=== PATIENT | male | born 1965 | race Caucasian/White ===

== ENCOUNTER 2019-05-04 12:55 | Inpatient (IN) | payer OTHER ==
[~2019-05-04] VITALS: Ht 175.3 cm; Wt 67.0 kg
[2019-05-04 13:41] LABS: CALCIUM 7.8 mg/dL (8.5-10.1); CARBON DIOXIDE 19.2 mmol/L (21-32); CHLORIDE SERUM 102 mmol/L (98-107); CREATININE SERUM 2.2 mg/dL (0.7-1.3); GFR1 33 mL/min; GLUCOSE SERUM 92 mg/dL (74-106); POTASSIUM SERUM 3.6 mmol/L (3.5-5.1); SODIUM SERUM 135 mmol/L (136-145)
[2019-05-04 13:57] LABS: FREE T4 1.44 ng/dL (0.76-1.46); FREE THYROXINE INDEX 2.3 ug/dL (1.4-4.5); T4(THYROXINE) 5.9 ug/dL (4.7-13.3)
[2019-05-04 14:01] LABS: T3 TOTAL 0.44 ng/mL
[2019-05-04 14:19] LABS: ALKALINE PHOSPHATASE 188 U/L (46-116); ALT/SGPT 39 U/L (16-63); AST/SGOT 44 U/L (15-37); BILIRUBIN TOTAL 0.9 mg/dL (0.20-1.00); C REACTIVE PROTEIN 7.8 mg/dL (<=0.9)
[2019-05-04 14:20] LABS: ALBUMIN 2.2 g/dL (3.4-5.0); TOTAL PROTEIN, SERUM 5.9 g/dL (6.4-8.2)
[2019-05-04 14:44] LABS: CK-MB 4.7 ng/mL (0-3.6)
[2019-05-04 14:50] LABS: UA SPECIFIC GRAVITY 1.005 (1.005-1.035); microscopic required? YES
[2019-05-04 14:51] LABS: urine erythrocyte 2+ (NEGATIVE)
[2019-05-04 15:14] LABS: PLATELET COUNT 240 x10^3mcL (130-400); RED CELL DISTRIBUTION WIDTH 12.6 % (11.5-14.5)
[2019-05-04 15:18] LABS: ERYTHROCYTE SED RATE 46 mm/hr (0-20)
[2019-05-04 15:38] LABS: BAND NEUTROPHIL 32 % (0-10); METAMYELOCTE 21 % (0-2); MYELOCYTE 1 % (0-2); SEGMENTED NEUTROPHILS 45 % (37-75)
[2019-05-04 15:40] LABS: rbc morphology (normal/abnorm) NORMAL (NORMAL)
[2019-05-04 15:42] LABS: PLATELET MORPHOLOGY PLATELETS NORMAL
[2019-05-04] MEDS ORDERED: APAP325 MG (18:32)
[2019-05-04] MEDS ORDERED: DILANTIN KAPSEA30 MG (18:33)
[2019-05-04] MEDS ORDERED: [UNRECOGNIZED DRUG - OTHER] (18:33)
[2019-05-04] MEDS ORDERED: ZOLOFT25 MG (18:34)
[2019-05-04] MEDS ORDERED: OLANZAPINE2.5 M1 (18:35)
[2019-05-04] MEDS ORDERED: LATANOPROST2.5 ML (18:36)
[2019-05-04 19:29] VITALS: BP 103/68
[2019-05-04 23:03] VITALS: BP 97/65
[2019-05-05 03:06] VITALS: BP 96/57
[2019-05-05 05:14] LABS: PLATELET COUNT 266 x10^3mcL (130-400); RED CELL DISTRIBUTION WIDTH 12.8 % (11.5-14.5)
[2019-05-05 05:17] LABS: BASOPHIL % 0 % (0-2)
[2019-05-05 05:28] LABS: CALCIUM 7.6 mg/dL (8.5-10.1); CARBON DIOXIDE 19.4 mmol/L (21-32); CREATININE SERUM 1.7 mg/dL (0.7-1.3); POTASSIUM SERUM 4.1 mmol/L (3.5-5.1)
[2019-05-05 07:45] VITALS: BP 94/51
[2019-05-05 11:39] VITALS: BP 90/53
[2019-05-05 16:16] VITALS: BP 87/60
[2019-05-05 19:30] VITALS: BP 83/49
[2019-05-05 23:25] VITALS: BP 100/57
[2019-05-06 03:31] VITALS: BP 101/68
[2019-05-06 05:36] LABS: PLATELET COUNT 163 x10^3mcL (130-400); RED CELL DISTRIBUTION WIDTH 13.3 % (11.5-14.5)
[2019-05-06 05:43] LABS: BASOPHIL % 0 % (0-2)
[2019-05-06 05:51] LABS: CALCIUM 7.6 mg/dL (8.5-10.1); CARBON DIOXIDE 21.8 mmol/L (21-32); CHLORIDE SERUM 113 mmol/L (98-107); CREATININE SERUM 0.9 mg/dL (0.7-1.3); GFR1 > 60 mL/min; GLUCOSE SERUM 102 mg/dL (74-106); POTASSIUM SERUM 3.4 mmol/L (3.5-5.1); SODIUM SERUM 145 mmol/L (136-145); TRIGLYCERIDES 101 mg/dL (<150)
[2019-05-06 05:57] LABS: CHOLESTEROL 89 mg/dL (<200); CHOLESTEROL/HDL RATIO 6.8; HDL CHOLESTEROL 13 mg/dL (40-60)
[2019-05-06 08:00] VITALS: BP 105/77
[2019-05-06 12:00] VITALS: BP 106/71
[2019-05-06 19:30] VITALS: BP 96/62
[2019-05-06 23:16] VITALS: BP 95/61
[2019-05-07 03:07] VITALS: BP 110/75
[2019-05-07 05:44] LABS: CALCIUM 7.7 mg/dL (8.5-10.1); CARBON DIOXIDE 24.4 mmol/L (21-32); CHLORIDE SERUM 113 mmol/L (98-107); CREATININE SERUM 0.7 mg/dL (0.7-1.3); GFR1 > 60 mL/min; GLUCOSE SERUM 93 mg/dL (74-106); POTASSIUM SERUM 3.2 mmol/L (3.5-5.1); SODIUM SERUM 143 mmol/L (136-145)
[2019-05-07 06:34] LABS: PLATELET COUNT 160 x10^3mcL (130-400); RED CELL DISTRIBUTION WIDTH 13.3 % (11.5-14.5)
[2019-05-07 07:40] VITALS: BP 112/77
[2019-05-07 08:02] LABS: BAND NEUTROPHIL 4 % (0-10); BASOPHIL 2 % (0-2); MONOCYTE 5 % (0-7); SEGMENTED NEUTROPHILS 87 % (37-75)
[2019-05-07 08:03] LABS: PLATELET MORPHOLOGY PLATELETS NORMAL; rbc morphology (normal/abnorm) ABNORMAL (NORMAL)
[2019-05-07 09:23] LABS: PHOSPHOROUS 2.3 mg/dL (2.5-4.9)
[2019-05-07 11:50] VITALS: BP 94/60
[2019-05-07 15:50] VITALS: BP 100/62
[2019-05-07 19:25] VITALS: BP 95/63
[2019-05-07 23:44] VITALS: BP 91/57
[2019-05-08 03:15] VITALS: BP 102/63
[2019-05-08 04:34] LABS: BASOPHIL % 0.2 % (0-2); PLATELET COUNT 176 x10^3mcL (130-400); RED CELL DISTRIBUTION WIDTH 13.5 % (11.5-14.5)
[2019-05-08 04:41] LABS: ALKALINE PHOSPHATASE 377 U/L (46-116); ALT/SGPT 35 U/L (16-63); AST/SGOT 22 U/L (15-37); BILIRUBIN TOTAL 0.3 mg/dL (0.20-1.00); CARBON DIOXIDE 25.3 mmol/L (21-32); CHLORIDE SERUM 114 mmol/L (98-107); CREATININE SERUM 0.6 mg/dL (0.7-1.3); GFR1 > 60 mL/min; GLUCOSE SERUM 80 mg/dL (74-106); POTASSIUM SERUM 3.5 mmol/L (3.5-5.1); SODIUM SERUM 144 mmol/L (136-145)
[2019-05-08 04:43] LABS: TOTAL PROTEIN, SERUM 4.9 g/dL (6.4-8.2)
[2019-05-08 08:07] VITALS: BP 94/58
[2019-05-08 11:55] VITALS: BP 100/62
[2019-05-08 17:16] VITALS: BP 109/73
[2019-05-08 20:34] VITALS: BP 101/71
[2019-05-09 06:00] VITALS: BP 99/63
[2019-05-09 06:16] LABS: PLATELET COUNT 217 x10^3mcL (130-400); RED CELL DISTRIBUTION WIDTH 13.7 % (11.5-14.5)
[2019-05-09 06:31] LABS: CALCIUM 7.8 mg/dL (8.5-10.1); CARBON DIOXIDE 24.9 mmol/L (21-32); CHLORIDE SERUM 110 mmol/L (98-107); CREATININE SERUM 0.6 mg/dL (0.7-1.3); GFR1 > 60 mL/min; GLUCOSE SERUM 82 mg/dL (74-106); POTASSIUM SERUM 3.3 mmol/L (3.5-5.1); SODIUM SERUM 143 mmol/L (136-145)
[2019-05-09 07:25] LABS: BAND NEUTROPHIL 1 % (0-10); MONOCYTE 18 % (0-7); SEGMENTED NEUTROPHILS 60 % (37-75)
[2019-05-09 07:26] LABS: PLATELET MORPHOLOGY PLATELETS DECREASED; rbc morphology (normal/abnorm) ABNORMAL (NORMAL)
[2019-05-09 09:17] VITALS: BP 111/74
[2019-05-09 12:31] VITALS: BP 99/64
[2019-05-09 16:30] VITALS: BP 114/69
[2019-05-09 20:20] VITALS: BP 110/72
[2019-05-10 05:07] VITALS: BP 121/76
[2019-05-10 07:04] LABS: PLATELET COUNT 262 x10^3mcL (130-400); RED CELL DISTRIBUTION WIDTH 13.3 % (11.5-14.5)
[2019-05-10 07:38] LABS: CALCIUM 8.1 mg/dL (8.5-10.1); CARBON DIOXIDE 24.9 mmol/L (21-32); CHLORIDE SERUM 110 mmol/L (98-107); CREATININE SERUM 0.6 mg/dL (0.7-1.3); GFR1 > 60 mL/min; GLUCOSE SERUM 90 mg/dL (74-106); POTASSIUM SERUM 3.4 mmol/L (3.5-5.1); SODIUM SERUM 144 mmol/L (136-145)
[2019-05-10 08:48] VITALS: BP 114/69
[2019-05-10 11:36] VITALS: Ht 175.3 cm; Wt 67.0 kg
[2019-05-10 13:15] VITALS: BP 116/62
[2019-05-10 17:04] VITALS: BP 112/74
[2019-05-10 19:40] VITALS: BP 115/71
[2019-05-11 06:02] VITALS: BP 109/60
[2019-05-11 06:38] LABS: BASOPHIL % 0.1 % (0-2); PLATELET COUNT 274 x10^3mcL (130-400); RED CELL DISTRIBUTION WIDTH 13.3 % (11.5-14.5)
[2019-05-11 07:04] LABS: CALCIUM 8.1 mg/dL (8.5-10.1); CARBON DIOXIDE 24.1 mmol/L (21-32); CHLORIDE SERUM 104 mmol/L (98-107); CREATININE SERUM 0.6 mg/dL (0.7-1.3); GFR1 > 60 mL/min; GLUCOSE SERUM 92 mg/dL (74-106); POTASSIUM SERUM 3.1 mmol/L (3.5-5.1); SODIUM SERUM 139 mmol/L (136-145)
[2019-05-11 08:06] VITALS: BP 125/78
[2019-05-11 11:36] VITALS: BP 97/68
[2019-05-11 16:34] VITALS: BP 117/77
[2019-05-11 21:04] VITALS: BP 119/76
[2019-05-12 05:43] VITALS: BP 103/62
[2019-05-12 06:37] LABS: BASOPHIL % 0.3 % (0-2); PLATELET COUNT 327 x10^3mcL (130-400); RED CELL DISTRIBUTION WIDTH 13.3 % (11.5-14.5)
[2019-05-12 07:04] LABS: CARBON DIOXIDE 23.4 mmol/L (21-32); CHLORIDE SERUM 105 mmol/L (98-107); CREATININE SERUM 0.6 mg/dL (0.7-1.3); GFR1 > 60 mL/min; GLUCOSE SERUM 87 mg/dL (74-106); POTASSIUM SERUM 3.2 mmol/L (3.5-5.1); SODIUM SERUM 138 mmol/L (136-145)
[2019-05-12 10:04] VITALS: BP 92/54
[2019-05-12 14:04] VITALS: BP 106/67
[2019-05-12 18:29] VITALS: BP 121/79
[2019-05-12 20:24] VITALS: BP 118/72
[2019-05-13 05:13] VITALS: BP 114/74
[2019-05-13 06:39] LABS: BASOPHIL % 0.3 % (0-2); RED CELL DISTRIBUTION WIDTH 13.7 % (11.5-14.5)
[2019-05-13 06:47] LABS: PLATELET COUNT 404 x10^3mcL (130-400)
[2019-05-13 06:59] LABS: CALCIUM 8.3 mg/dL (8.5-10.1); CARBON DIOXIDE 24.2 mmol/L (21-32); CHLORIDE SERUM 108 mmol/L (98-107); CREATININE SERUM 0.5 mg/dL (0.7-1.3); GFR1 > 60 mL/min; GLUCOSE SERUM 89 mg/dL (74-106); SODIUM SERUM 141 mmol/L (136-145)
[2019-05-13 08:27] VITALS: BP 114/71
[2019-05-13 08:59] VITALS: BP 109/80; BP 124/84
[2019-05-13 17:56] VITALS: BP 135/78
[2019-05-13 21:02] VITALS: BP 115/71
[2019-05-14 05:20] VITALS: BP 126/77
[2019-05-14 06:47] LABS: CALCIUM 8.6 mg/dL (8.5-10.1); CARBON DIOXIDE 27.7 mmol/L (21-32); CHLORIDE SERUM 106 mmol/L (98-107); CREATININE SERUM 0.6 mg/dL (0.7-1.3); GFR1 > 60 mL/min; GLUCOSE SERUM 90 mg/dL (74-106); SODIUM SERUM 143 mmol/L (136-145)
[2019-05-14 06:57] LABS: BASOPHIL % 0.4 % (0-2); RED CELL DISTRIBUTION WIDTH 13.1 % (11.5-14.5)
[2019-05-14 08:00] VITALS: BP 109/80
[2019-05-14 08:38] VITALS: BP 93/64
[2019-05-14 10:36] LABS: PLATELET COUNT 528 x10^3mcL (130-400)
[2019-05-14 12:53] VITALS: BP 105/77
[2019-05-14 18:02] VITALS: BP 116/80
[2019-05-14 21:31] VITALS: BP 117/72
[2019-05-15 06:19] VITALS: BP 115/77
[2019-05-15 08:51] VITALS: BP 112/63
[2019-05-15 12:53] VITALS: BP 119/76
[2019-05-15 16:40] VITALS: BP 125/87
[2019-05-15 20:21] VITALS: BP 118/68
[2019-05-16 06:04] VITALS: BP 130/74
[2019-05-16 06:16] LABS: BASOPHIL % 1.4 % (0-2); PLATELET COUNT 327 x10^3mcL (130-400); RED CELL DISTRIBUTION WIDTH 13.3 % (11.5-14.5)
[2019-05-16 06:34] LABS: CARBON DIOXIDE 28.2 mmol/L (21-32); CHLORIDE SERUM 103 mmol/L (98-107); CREATININE SERUM 0.5 mg/dL (0.7-1.3); GFR1 > 60 mL/min; GLUCOSE SERUM 87 mg/dL (74-106); POTASSIUM SERUM 4.9 mmol/L (3.5-5.1); SODIUM SERUM 140 mmol/L (136-145)
[2019-05-16 09:24] VITALS: BP 118/69
[2019-05-16 11:30] VITALS: BP 118/69
== END 2019-05-16 18:36 | disposition other institution (70) | DRG 871 ==
LOC: ED 12:55 → IC 16:11 → DU 05-08 15:49
PROVIDERS: Internal Medicine Cardiovascular Disease; Specialist; ADMIT Internal Medicine
PROC: 05HM33Z Insertion of Infusion Device into Right Internal Jugular Vein, Percutaneous Approach (ICD-10-PCS; principal; 2019-05-04)
PROC: B543ZZA Ultrasonography of Right Jugular Veins, Guidance (ICD-10-PCS; 2019-05-04)
DX: A41.51 Sepsis due to Escherichia coli [E. coli] (principal); R65.21 Severe sepsis with septic shock; I21.4 Non-ST elevation (NSTEMI) myocardial infarction; G93.41 Metabolic encephalopathy; N39.0 Urinary tract infection, site not specified; N17.9 Acute kidney failure, unspecified; E87.2 Acidosis; N13.30 Unspecified hydronephrosis; B96.5 Pseudomonas (aeruginosa) (mallei) (pseudomallei) as the cause of diseases classified elsewhere; I25.10 Atherosclerotic heart disease of native coronary artery without angina pectoris; M47.896 Other spondylosis, lumbar region; G40.909 Epilepsy, unspecified, not intractable, without status epilepticus; G89.29 Other chronic pain; D64.9 Anemia, unspecified; F17.210 Nicotine dependence, cigarettes, uncomplicated; Z93.3 Colostomy status; Z99.3 Dependence on wheelchair; Z68.20 Body mass index [BMI] 20.0-20.9, adult
CPT/HCPCS: 36600; 83880; 84439; 87804; 97116-GP; A9500; C9113; G0378; J0696; J0744; J1644; J1720; J1885; J1940; J2185 ×2; J2270; J2543; J2765; J2785; J3370; J3490; J7030; J7060; J7120; J7620; P9047; Q0092; Q9967